=== PATIENT | female | born 1995 | race Asian ===

== ENCOUNTER 2020-09-01 05:21 | Day surgery (SDC) | payer BC ==
[2020-08-29 09:24] LABS: HEMATOCRIT 35.4 % (36.0-47.0); HEMOGLOBIN 12.2 g/dL (12.0-15.5); MEAN CORPUSCULAR HEMOGLOBIN 31.1 pg (27.0-33.4); MEAN CORPUSCULAR HGB CONC 34.5 g/dL (32.0-36.0); MEAN CORPUSCULAR VOLUME 90 fl (80-97); PLATELET COUNT 207 10^3/uL (150-450); RED BLOOD COUNT 3.92 10^6/uL (3.72-5.28); RED CELL DISTRIBUTION WIDTH 12.6 % (11.5-14.0); WHITE BLOOD COUNT 6.7 10^3/uL (4.0-10.5)
[2020-08-29 09:29] LABS: APPEARANCE,URINE SLIGHTLY-CLOUDY; BILIRUBIN,URINE NEGATIVE (NEGATIVE); COLOR,URINE YELLOW; GLUCOSE, URINE NEGATIVE (NEGATIVE); KETONES,URINE NEGATIVE (NEGATIVE); LEUKOCYTE ESTERASE,URINE SMALL (NEGATIVE); NITRITE,URINE NEGATIVE (NEGATIVE); PROTEIN,URINE NEGATIVE (NEGATIVE); URINE SPECIFIC GRAVITY 1.024; UROBILINOGEN,URINE NEGATIVE mg/dL (<2.0)
[2020-08-29 09:59] LABS: ANION GAP 10 (5-19); BLOOD UREA NITROGEN 12 mg/dL (7-20); CALCIUM 9.3 mg/dL (8.4-10.2); CARBON DIOXIDE 24 mmol/L (22-30); CHLORIDE 104 mmol/L (98-107); GLUCOSE 89 mg/dL (75-110)
[~2020-09-01 05:21] MED LIST: CEFAZOLIN 1 GM/D5W RTU 1 GM/50 ML RTUPB IV ONE; CEFAZOLIN 1 GM/D5W RTU 1 GM/50 ML RTUPB IV PRN; LACTATED RINGERS 1000 ML IV PRN
[2020-09-01] MEDS ORDERED: FENTANYL CITRATE INJ/PF 100 MCG/2 ML AMPUL ONE (06:26)
[2020-09-01] MEDS ORDERED: LIDOCAINE 2% INJ-PF (100 MG/5 ML) SYRINGE ONE (06:26)
[2020-09-01] MEDS ORDERED: MIDAZOLAM 2 MG/2 ML INJ ONE (06:27)
[2020-09-01] MEDS ORDERED: PROPOFOL INJ 200 MG/20 ML VIAL IV ONE (06:27)
[2020-09-01] MEDS ORDERED: DIPHENHYDRAMINE HCL 50 MG/ML VIAL IV PRN (07:05)
[2020-09-01] MEDS ORDERED: FENTANYL CITRATE INJ/PF 100 MCG/2 ML AMPUL IV PRN ×3 (07:05)
[2020-09-01] MEDS ORDERED: MORPHINE SULFATE 10 MG/ML INJ IV PRN (07:05)
[2020-09-01] MEDS ORDERED: MEPERIDINE HCL/PF INJ 25 MG/1 ML DISP.SYRIN IV PRN (07:05)
[2020-09-01] MEDS ORDERED: PROMETHAZINE HCL INJ 25 MG/1 ML VIAL IV PRN ×2 (07:05)
[2020-09-01] MEDS ORDERED: ONDANSETRON HCL INJ/PF 4 MG/2 ML SDV ONE (07:07)
[2020-09-01] MEDS ORDERED: OXYCODONE-ACETAMINOPHEN 5-325 MG TABLET PO PRN (09:00)
[2020-09-01] MEDS ORDERED: PROMETHAZINE HCL INJ 25 MG/1 ML VIAL IM PRN (09:00)
[2020-09-01 10:01] VITALS: BP 96/65
[2020-09-01] MEDS ORDERED: IBUPROFEN 800 MG TABLET PO SCH (14:00)
[2020-09-01] MEDS ORDERED: PHENYLEPHRINE HCL INJ/PF 10 MG/1 ML SDV ONE (14:45)
[2020-09-01] MEDS ORDERED: DIPHENHYDRAMINE HCL 50 MG/ML VIAL ONE (14:45)
--- NOTE | 2020-09-13 10:31 | Operative Report ---
Operative Report DATE OF SURGERY: 09/01/20 PREOPERATIVE DIAGNOSIS: Vaginal septum POSTOPERATIVE DIAGNOSIS: Same OPERATION: Excision midline vaginal septum SURGEON: VANNESSA SAWYER ANESTHESIA: GA TISSUE REMOVED OR ALTERED: Vaginal septal tissue COMPLICATIONS: None ESTIMATED BLOOD LOSS: 25 mL INTRAOPERATIVE FINDINGS: Midline vaginal septum extending from just inside the introitus up to the level of the cervix dividing the single cervix in the middle. Exam under anesthesia demonstrates with palpates to be a single uterus confirming MRI impression. PROCEDURE: The usual risk of bleeding infection anesthesia and damage to other organs and tissues been discussed the patient understood. The need for hysteroscopy was discussed. This was can be done in a judicious manner depending on operative findings. She has no concerns at this time. She is well aware of the possibility of further septal involvement inside the uterus but was to be left alone and until possible fertility issues become apparent The bladder was left undrained examination lesion performed. Midline septum was identified using small Karyn retractors. Using a tonsil clamps the septum was divided up to the level of the cervix and oversewn with a 3-0 Vicryl stitch. Bleeding was nil in the end and photographs were taken pre and post procedure.
--- NOTE | 2020-09-13 10:32 | Discharge Summary ---
Discharge Summary (SDC) - Discharge Final Diagnosis: vaginal septum Date of Surgery: 09/01/20 Discharge Date: 09/01/20 Condition: Good Forms: ASU Anesthesia D/C Instruction, Discharge POC-Surgical Service Treatment or Instructions: no tub baths, swimming, hot tubs pelvic rest no heavy lifting (more than 10 lbs) for 2 weeks may shower normal diet normal non strenuous activity call md for unusual bleeding: saturating a pad in less than an hour call md for signs of infection: fever over 101, foul smelling drainage Referrals: VANNESSA SAWYER MD [Primary Care Provider] - Respiratory Treatments at Home: Deep Breathing/Coughing Discharge Activity: Activity As Tolerated, No Lifting Over 10 Pounds, Pelvic Res t, No tub bath Home Care Assistance: None Needed Report the Following to Your Physician Immediately: Shortness of Breath, Fever over 101 Degrees, Unusual Bleeding, Drainage-Foul Smelling
== END 2020-09-01 10:00 | disposition home or self-care (01) ==
LOC: OROUT 05:21
PROVIDERS: ATTEND Specialist
DX: Q52.120 Longitudinal vaginal septum, nonobstructing (principal); Z20.828 Contact with and (suspected) exposure to other viral communicable diseases; Z79.3 Long term (current) use of hormonal contraceptives
CPT/HCPCS: 36415; 85027; 81025; 80048; 81001; 00952; 57130; U0003; J2250; J0690; J1200; J3010; J2001; J2370; J2405; J2704; C9803; 87635; 952